=== PATIENT | female | born 1960 | race Caucasian/White ===

== ENCOUNTER 2016-10-27 10:47 | Emergency (ER) | payer SELFPAY ==
[~2016-10-27] VITALS: Ht 165.1 cm; Wt 89.3 kg
[2016-10-27 11:38] LABS: ADD MIUA? YES; BILIRUBIN NEGATIVE; BLOOD LARGE; COLOR AMBER ((YELLOW)); GLUCOSE (STRIP) NEGATIVE; KETONES NEGATIVE; LEUKOCYTES MODERATE; NITRITE POSITIVE; PROTEIN (STRIP) 30; SPECIFIC GRAVITY 1.004 (1.000-1.030)
[2016-10-27 11:49] LABS: BACTERIA 1+ /HPF; EPITHELIAL CELLS RARE /HPF; MUCUS NONE SEEN /LPF; UCUL ADDED? YES; WHITE BLOOD CELLS TNTC /HPF (0-5)
[2016-10-27 12:42] LABS: EOSINOPHIL (%) 0.8 % (0-5); EOSINOPHIL COUNT 0.1 K/uL (0-0.3); HEMATOCRIT 37.4 % (36.0-46.0); IMMATURE GRANULOCYTE (%) 1.4 % (0.0-0.7); IMMATURE GRANULOCYTE COUNT 0.2 K/uL; INSTRUMENT ABS NEUTROPHIL CT 8.2 K/uL; LYMPHOCYTE COUNT 1.8 K/uL (1.0-2.8); MCH 29.2 PG (29.0-34.0); MCHC 33.2 G/DL (30.0-36.0); MCV 88.2 FL (83-99); MONOCYTE (%) 12.7 % (3-12); MONOCYTE COUNT 1.5 K/uL (0-0.8); NEUTROPHIL (%) 69.8 % (45-76); NEUTROPHIL COUNT 8.2 K/uL (1.8-6.4); PLATELET COUNT 208 K/uL (156-360); RBC DIS.WIDTH-CV 12.5 % (11.8-14.6); RBC DIS.WIDTH-SD 40.6 % (39-53); RED BLOOD COUNT 4.24 M/uL (3.80-5.20); WHITE BLOOD COUNT 11.7 K/uL (4.1-10.2)
[2016-10-27 12:54] LABS: CHLORIDE 105 mEq/L (99-109); SODIUM 142 mEq/L (136-147)
[2016-10-27 12:55] LABS: GLUCOSE 102 mg/dL (70-99)
[2016-10-27 12:57] LABS: ANION GAP 9 MEQ/L (2-14)
[2016-10-27 12:59] LABS: GFR ESTIMATE (CALCULATED) > 59 mL/min/
[2016-10-27 13:00] LABS: UREA NITROGEN (BUN) 10 mg/dL (9-23)
[2016-10-27] MEDS ORDERED: CIPRO500 MG PO (13:11)
[2016-10-27] MEDS ORDERED: PYRIDIUM200 MG PO (13:13)
[2016-10-27 13:41] VITALS: BP 136/79
== END 2016-10-27 13:58 | disposition home or self-care (01) ==
LOC: EME 10:47
PROVIDERS: Emergency Medicine
DX: N39.0 Urinary tract infection, site not specified (principal); I10 Essential (primary) hypertension; E03.9 Hypothyroidism, unspecified
CPT/HCPCS: 80048; 81003; 85025; 87077; 87086; 87186; 99281; 99284